=== PATIENT | female | born 1980 | race Caucasian/White ===

== ENCOUNTER 2020-06-17 00:31 | Emergency (ER) | payer SELFPAY ==
[2020-06-17 00:48] VITALS: BP 116/79; PULSE 92; RESP 18; TEMP 35.9; O2SAT 100; BMI 20.3
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
--- NOTE | 2020-06-17 01:25 | XR_ITS ---
WS: [id number] EXAM: AP CHEST: PORTABLE UPRIGHT DATE OF EXAM: 06/17/2020, 0140 hours COMPARISON: NONE HISTORY: Patient is 39 years old with shortness of breath. FINDINGS: The cardiac silhouette is normal in size. The mediastinal contours are normal. The pulmonary vas cularity is normal. Lungs are hyperinflated but otherwise clear. There is no effusion or pneumothor ax. No acute bony abnormality is seen. XR/XR chest 1V portable [id number] IMPRESSION: Slight hyperinflation. No consolidating infiltrate.
--- NOTE | 2020-06-17 01:25 | ECG_ITS ---
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 Measurements Intervals [place] Rate: 76 P: 78 FL: 132 QRS: 72 QRSD: 91 T: 61 QT: 381 QTc: 431 Interpretive Statements SINUS RHYTHM No previous ECG available for comparison Electronically Signed On 06-18-2020 19:43:59 CDT by Rl Kapadia M.D. [email or web address]
[2020-06-17 01:41] LABS: Basophils # 0.1 10^3/uL (0.0-0.1); Basophils % 0.8 %; Eosinophils # 0.3 10^3/uL (0.0-0.8); Eosinophils % 3.7 %; Hematocrit 36.5 % (37.0-47.0); Hemoglobin 11.8 g/dL (11.5-15.3); Lymphocytes # 4.2 10^3/uL (0.8-4.8); Lymphocytes % 52.6 %; Mean Corpuscular HGB Conc 32.3 g/dL (30.0-36.0); Mean Corpuscular Hemoglobin 30.3 pg (28.0-34.0); Mean Corpuscular Volume 93.8 fL (81-99); Mean Platelet Volume 9.7 fL (7.4-10.4); Monocytes # 0.6 10^3/uL (0.2-0.9); Monocytes % 7.1 %; Neutrophils # 2.82 10^3/uL (1.8-7.7); Neutrophils % 35.5 %; Nucleated Red Blood Cells % 0 %; Platelet Count 270 10^3/cmm (130-400); Red Blood Count 3.89 10^6/uL (4.1-5.3); Red Cell Distribution Width 13.9 % (12.1-15.1); White Blood Count 7.9 10^3/uL (4.0-10.0)
[2020-06-17 01:48] LABS: Amphetamines Screen Urine Negative (Negative); Barbiturates Screen Urine Negative (Negative); Benzodiazepines Screen Urine Negative (Negative); Cocaine Screen Urine Negative (Negative); Opiate Screen Urine Negative (Negative); PCP Screen Urine Negative (Negative); THC Screen Urine Negative (Negative)
[2020-06-17 02:01] LABS: Alanine Aminotransferase 66 U/L (0-33); Albumin Level 4.2 g/dL (3.5-5.2); Alkaline Phosphatase 61 IU/L (35-105); Anion Gap 10.7 (5-19); Aspartate Amino Transferase 43 U/L (0-32); Blood Urea Nitrogen 9 mg/dL (6-20); Calcium 8.5 mg/dL (8.5-10.5); Carbon Dioxide 27 mmol/L (22-29); Chloride 105 mmol/L (98-107); Globulin 2.8 g/dL (1.3-4.6); Glomerular Filtration Rate 175.9 mL/min (90-130); Glucose 100 mg/dL (65-115); Osmolality Calculated 284 mOsm/kg (285-295); Potassium 3.7 mmol/L (3.5-5.1); Sodium 139 mmol/L (136-145); Total Bilirubin 0.3 mg/dL (0.15-1.2)
[2020-06-17 02:14] LABS: Acetaminophen < 5.0 ug/mL (10-30); Alcohol Level < 10 mg/dL (0-10); Salicylate < 0.3 mg/dL (3-10)
[2020-06-17] MEDS: ondansetron 2 mg/ML SDV 2 mL 4 MG IVP (02:22)
[2020-06-17] MEDS: ketorolac 30 mg/mL INJ IVP (02:24)
[2020-06-17 02:36] VITALS: BP 108/76; PULSE 80; RESP 18; O2SAT 98
== END 2020-06-17 02:39 | disposition home or self-care (01) ==
PROVIDERS: Emergency Provider Emergency Medicine
DX: R07.9 Chest pain, unspecified (principal); M79.10 Myalgia, unspecified site
CPT/HCPCS: 12345; 71045; 80053; 80306; 80307; 85025; 93005; 96374; 96375; 99283; J1885; J2405